=== PATIENT | female | born 1995 ===

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

== ENCOUNTER 2018-02-11 19:37 | Emergency (ER) | payer SELFPAY ==
[2018-02-11 19:37] VITALS: BMI 33.0
[2018-02-11 19:56] VITALS: BP 105/63; PULSE 113; RESP 16; TEMP 99.3; O2SAT 97
--- NOTE | 2018-02-11 20:38 | ED PDOC ---
History of Present Illness History of Present Illness: 23yo female, otherwise well, comes to ER reporting URI symptoms, rhinorrhea, headache and bodyaches. She also reports generalized malaise and fatigue as well. Otherwise, denies any sore throat, known sick contacts or recent foreign travels. Patient has no other medical complaints. PMD: None HPI: Influenza Time Seen by Provider: 02/11/18 19:50 Chief Complaint: Flu-like Symptoms History Per: Patient Exam Limitations: no limitations Onset/Duration Of Symptoms: Hrs Symptoms include: bodyaches, cough, nasal congestion. denies: fever, headache Sick Contacts (Context): None Past Medical History Reviewed: Historical Data, Nursing Documentation, Vital Signs Vital Signs: Last Vital Signs Temp 99.3 F 02/11/18 19:53 Pulse 113 H 02/11/18 19:53 Resp 16 02/11/18 19:53 BP 105/63 02/11/18 19:53 Pulse Ox 97 02/11/18 19:53 - Medical History PMH: No Chronic Diseases - Surgical History Surgical History: No Surg Hx - Family History Family History: States: No Known Family Hx - Social History Current smoker - smoking cessation education provided: No Alcohol: None Drugs: Denies - Home Medications Home Medications: Ambulatory Orders Medication Instructions Recorded RX: Nitrofurantoin Macrocrystals 100 mg PO BID #28 cap 07/28/16 [Macrobid] RX: Multivit/Folic Acid/I 1 tab PO DAILY 09/23/16 [] Ferrous Sulfate [Feosol] 325 mg PO BID #60 tab 09/25/16 RX: Docusate Sodium/Sennosides A 1 tab PO HS #30 tab 09/25/16 [Senokot S 50 MG-8.6 MG] RX: Ibuprofen [Motrin Tab] 600 mg PO Q6 #30 tab 09/25/16 Oseltamivir [Tamiflu] 75 mg PO BID #10 cap 02/11/18 RX: Ibuprofen [Motrin Tab] 600 mg PO Q8 PRN #30 tab 02/11/18 - Allergies Allergies/Adverse Reactions: Allergies Allergy/AdvReac Type Severity Reaction Status Date / Time No Known Allergies Allergy Verified 07/25/16 22:49 Review of Systems ROS Statement: Except As Marked, All Systems Reviewed And Found Negative Constitutional: Negative for: Fever, Chills ENT: Positive for: Nose Discharge, Nose Congestion. Negative for: Throat Pain Respiratory: Positive for: Cough Physical Exam - Reviewed Nursing Documentation Reviewed: Yes Vital Signs Reviewed: Yes - Physical Exam Appears: Positive for: Non-toxic, No Acute Distress Head Exam: Positive for: ATRAUMATIC, NORMOCEPHALIC Skin: Positive for: Warm, Dry Eye Exam: Positive for: EOMI, PERRL ENT: Positive for: Pharynx Is (clear). Negative for: Pharyngeal Erythema, Tonsillar Exudate Neck: Positive for: Painless ROM, Supple Cardiovascular/Chest: Positive for: Regular Rate, Rhythm. Negative for: Murmur Respiratory: Positive for: Normal Breath Sounds. Negative for: Respiratory Distress Gastrointestinal/Abdominal: Positive for: Soft. Negative for: Tenderness Back: Positive for: Normal Inspection. Negative for: Decreased ROM Extremity: Positive for: Normal ROM. Negative for: Deformity Lymphatic: Negative for: Adenopathy Neurologic/Psych: Positive for: Alert. Negative for: Motor/Sensory Deficits Medical Decision Making Medical Decision Making: Impression: 23yo female with flu like illness Plan: -- Tamiflu 75ml PO Scribe Attestation: Documented by Lara Jeffers, acting as a scribe for Shanika Campbell MD. Provider Scribe Attestation: All medical record entries made by the Scribe were at my direction and pers onally dictated by me. I have reviewed the chart and agree that the record accurately reflects my personal performance of the history, physical exam, medical decision making, and the department course for this patient. I have also personally directed, reviewed, and agree with the discharge instructions and disposition. - ECG O2 Sat by Pulse Oximetry: 97 Disposition - Clinical Impression Clinical Impression: Influenza-like symptoms - Disposition Referrals: [facility] [Outside] Disposition: Routine/Home Disposition Time: 20:00 Condition: STABLE Prescriptions: RX: Ibuprofen [Motrin Tab] 600 mg PO Q8 PRN #30 tab PRN Reason: Pain, Moderate (4-7) Oseltamivir [Tamiflu] 75 mg PO BID #10 cap Instructions: Viral Upper Respiratory Infection, Adult (DC) Forms: [employer] (Azeri), [facility] ED School/Work Excuse
== END 2018-02-11 20:50 | disposition home or self-care (01) ==
LOC: H.ER 19:37
DX: J11.1 Influenza due to unidentified influenza virus with other respiratory manifestations (principal)